=== PATIENT | male | born 1960 | race Caucasian/White ===

== ENCOUNTER 2020-04-22 19:59 | Emergency (ER) | payer OTHER ==
[~2020-04-22] VITALS: Ht 172.7 cm; Wt 68.0 kg
[2020-04-22 21:59] LABS: HEMATOCRIT 49.9 % (42.0-52.0); HEMOGLOBIN 17.7 gm/dL (14.0-18.0); MCH 34.7 pg (26.0-34.0); MCHC 35.6 g/dL (28.0-37.0); MCV 97.7 fL (80.0-100.0); MPV 8.7 fl. (7.2-11.1); NUCLEATED RBCS 0 /100WBC; PLATELET COUNT* 204 thou/uL (150-400); RDW-CV 13.8 % (10.5-14.5); WBC 10.8 thou/uL (4.0-11.0)
[2020-04-22 22:13] LABS: CALCIUM 8.6 mg/dL (8.5-10.1); CREATININE 1.7 mg/dL (0.6-1.3); POTASSIUM 4.5 mmol/L (3.5-5.1)
[2020-04-22 22:17] LABS: URINE BILIRUBIN NEGATIVE (Negative); URINE BLOOD 3+ (Negative); URINE CLARITY CLEAR; URINE COLOR YELLOW; URINE GLUCOSE-RANDOM NEGATIVE (Negative); URINE KETONES 1+ (Negative); URINE LEUKOCYTES-REFLEX NEGATIVE (Negative); URINE NITRITE-REFLEX NEGATIVE (Negative); URINE PROTEIN NEGATIVE (Negative); URINE SPECIFIC GRAVITY 1.025 (1.005-1.030)
[2020-04-22 22:18] LABS: ABSOLUTE LYMPHOCYTES 0.1 thou/uL (0.8-5.3); ABSOLUTE MONOCYTES 0.1 thou/uL (0.0-1.2); ABSOLUTE NEUTROPHILS 10.6 thou/uL (1.6-8.1); PLATELET ESTIMATE ADEQUATE; TOTAL BILIRUBIN 1.1 mg/dL (<0.1-1.0); TOTAL PROTEIN 7.7 g/dL (6.4-8.2)
[2020-04-22 22:23] LABS: SQUAMOUS 0-3 Few /LPF (0-3); URINE WBC-REFLEX 0-5 Rare /HPF (0-5)
[2020-04-22 22:24] LABS: CRYSTALS None Seen /LPF (None Seen); HYALINE CASTS 0-3 Few /LPF (None Seen); MUCUS 0-3 Light strn/LPF (None Seen); URINE RBC >20 Many /HPF (0-2)
[2020-04-23] MEDS ORDERED: NORCO 5-325 TA1 EAC1 PO (00:27)
[2020-04-23] MEDS ORDERED: ZOFRAN ODT4 MG DISSOLVE (00:27)
[2020-04-23] MEDS ORDERED: FLOMAX0.4 MG PO (00:27)
[2020-04-23] MEDS ORDERED: KEFLEX500 M1 PO (00:27)
[2020-04-23 00:52] VITALS: BP 123/70
--- NOTE | 2020-04-23 15:47 | EKG ---
[place] [address] ELECTROCARDIOGRAM REPORT Name: THOMAS DOUGLAS Room: [facility]#: [id number] Admission: 04/22/20 Attend Phys: Discharge: 04/23/20 Date of : 56 Date of Service: 04/22/202157 Report #: [id number] THIS REPORT FOR: //name// [facility] ED Test Date: 2020-04-22 Test Time: 21:58:42 Pat Name: THOMAS DOUGLAS Department: Room: Gender: Grommet Man: : 1960 Requested By: Johnny Barajas Order Number: [id number] MD: Bill Agosto Measurements Intervals Adams Rate: 58 P: 58 WA: 153 QRS: 56 QRSD: 79 T: 24 QT: 410 QTc: 403 Interpretive Statements Sinus rhythm No previous ECG available for comparison Electronically Signed On 04-23-2020 15:45:24 CDT by Bill Agosto [email or web address] <ELECTRONICALLY SIGNED> By: Bill Agosto MD, [facility] 04/23/20 1545 [id number] Bill Agosto MD, FACC /EPI
== END 2020-04-23 00:53 | disposition home or self-care (01) ==
LOC: M.ERS 19:59
PROVIDERS: Emergency Medicine Emergency Medical Services
DX: N20.0 Calculus of kidney (principal)